=== PATIENT | male | born 1960 | race African-American/Black ===

== ENCOUNTER 2016-10-09 08:15 | Day surgery (SDC) | payer OTHER ==
[~2016-10-09] VITALS: Ht 179.1 cm; Wt 89.7 kg
[2016-10-09 10:06] VITALS: Ht 179.1 cm; Wt 89.7 kg
[2016-10-09] MEDS ORDERED: ATENOLOL PO (10:08)
[2016-10-09] MEDS ORDERED: AMLODIPINE PO (10:08)
[2016-10-09] MEDS ORDERED: FLOMAX PO (10:08)
[2016-10-09] MEDS ORDERED: PROPOFOL 20 ML ONE ×2 (10:29→11:23)
[2016-10-09 10:56] VITALS: BP 155/108; PULSE 48; RESP 20
[2016-10-09] MEDS ORDERED: hydrALAzine 20 MG INJ ONE (11:55)
[2016-10-09] MEDS ORDERED: ONDANSETRON 4 MG INJ ONE (12:34)
[2016-10-09 12:43] VITALS: BP 152/95; PULSE 51; RESP 16
--- NOTE | 2016-10-14 11:58 | GILP ---
DATE OF PROCEDURE: 10/09/2016 PROCEDURE PERFORMED: 1. Esophagogastroduodenoscopy and biopsy. 2. Colonoscopy and biopsy. PROCEDURE PERFORMED: Katey Bustillos MD PREOP DIAGNOSES: 1. Abdominal pain. 2. Positive occult blood in stool. POSTOPERATIVE DIAGNOSES: 1. Hiatal hernia. 2. Gastroesophageal reflux disease. 3. Gastritis. 4. Prominently inflamed fold in prepyloric area, biopsies taken for histopathology. 5. colonoscopy to the cecum. 6. Small sigmoid colon polyp removed using cold biopsy forceps. 7. hemoroids INDICATION: Mr. Vladimir Matthews is a 55-year-old male patient who had positive blood in the stool. He also had upper abdominal pain not responding to therapy. The patient was indicated for endoscopy and colonoscopy for further evaluation. The procedure and possible complications were well explained to the patient. He understood and consented to the procedure. DESCRIPTION OF PROCEDURE: Under anesthesia the gastroscope was carefully introduced into the stomach, advanced through the stomach to the pylorus, duodenum and second portion of the duodenum. Findings in esophagus: The patient had evidence of gastroesophageal reflux disease. Stomach: He had gastritis. He had prominent inflamed folds in the prepyloric area. Biopsy obtained for histopathology. The colonoscope was carefully introduced into the rectum and advanced all the way to the cecum. Findings: There was a small sigmoid polyp which was removed with biopsy forceps. He tolerated the procedure well. There were no complications with the procedure. At the end of the procedure he was stable and he was discharged under the care of his family. IMPRESSION: See postoperative diagnosis. PLAN: 1. Omeprazole 5 mg p.o. daily. 2. Await histopathology report. 3. Next screening colonoscopy in 10 years. Dictated By: MD KWADWO Restrepo/polina/ann /Document#: [id number] AURY
== END 2016-10-09 13:30 | disposition home or self-care (01) ==
LOC: GIL 08:15
PROVIDERS: ATTEND Internal Medicine Gastroenterology
DX: K92.1 Melena (principal); K44.9 Diaphragmatic hernia without obstruction or gangrene; K21.9 Gastro-esophageal reflux disease without esophagitis; K29.50 Unspecified chronic gastritis without bleeding; D12.5 Benign neoplasm of sigmoid colon; K64.9 Unspecified hemorrhoids; I10 Essential (primary) hypertension
CPT/HCPCS: 43239; 45380; 88305; 88312; J0360; J2405; Z7610